=== PATIENT | female | born 1980 | race Two or more races ===

== ENCOUNTER 2021-01-15 05:28 | Inpatient (IN) | payer SELFPAY ==
[~2021-01-15] VITALS: Ht 160 cm; Wt 120.4 kg
[2021-01-15] VITALS (17 sets, daily range): BP systolic 114–152; BP diastolic 61–91
--- NOTE | 2021-01-15 06:36 | NUR ---
PATIENT ARRIVED ON THE FLOOR AT 0600, AMBULATORY. A/O X4.NO S/S OF DISTRESS NOTED. CALL LIGHT WITHIN REACH. BED IN LOWEST AND LOCKED POSITION. NPO. V/S TAKEN AND RECORDED.
--- NOTE | 2021-01-15 06:51 | NUR ---
PATIENT SIGNED THE CONSENTS AND ATTACHED TO THE CHART.
[2021-01-15] MEDS ORDERED: HYDROMORPHONE INJ 2 MG/ML DISP.SYRIN ONE (07:16)
[2021-01-15] MEDS ORDERED: ROCURONIUM BROMIDE 50 MG/5 ML ONE ×3 (07:16→11:42)
[2021-01-15] MEDS ORDERED: ANESTHESIA TRAY IN PYXIS 1 EA TRAY MC ONE (07:30)
--- NOTE | 2021-01-15 07:38 | NUR ---
MS RN OPENING NOTES RECEIVED PT RESTING IN BED IN NO ACUTE SIGN SOF DISTRESS. A/O X4, ABLE TO MAKE NEEDS KNOIWN. ON ROOM AIR, BREATHING EVEN AND UNLABORED. PT FOR SURGERY THIS MORNING BY AARON MCDONALD. STAT RAPID COVID 19 SWAB AND URINE FOR TEST COLLECTED, AWAITING FOR RESULTS. CALL LIGHT W/I EASY REACH OF PT.
[2021-01-15] MEDS ORDERED: MIDAZOLAM HCL 2 MG/2ML VIAL ONE (07:56)
--- NOTE | 2021-01-15 08:03 | NUR ---
RN NOTES PATIENT PICKED-UP VIA HER BED TO SURGERY.
[2021-01-15] MEDS ORDERED: HEPARIN SODIUM, PORCINE 5000 UNITS/1 ML VIAL ONE (09:47)
[2021-01-15] MEDS ORDERED: DESFLURANE 240 ML BOTTLE IH ONE (10:34)
[2021-01-15] MEDS ORDERED: METHYLENE BLUE 10 ML VIAL ONE (11:16)
[2021-01-15] MEDS ORDERED: MORPHINE SULFATE SOLN CONCENTRATED 20 MG/ML PO PRN (13:00)
[2021-01-15] MEDS ORDERED: ONDANSETRON HCL/PF 4 MG/2 ML VIAL ONE (13:21)
[2021-01-15] MEDS ORDERED: METOCLOPRAMIDE HCL 10 MG/2 ML VIAL ONE (13:45)
--- NOTE | 2021-01-15 14:37 | NUR ---
RN NOTES PT RETURNED TO UNIT S/P LAPAROSCOPIC SLEEVE GASTRECTOMY BY DR AARON SALAS. PT IS LETHARGIC, A/O X4. ABLE TO VERBALIZED NEEDS. DRESSING ON 5 SURGICAL DRESSING ON ABDOMEN C/D/I. ROGERIO DRAIN ON RIGHT UPPER QUADRANT IN PLACE WITH SEROSANGUINEOUS DRAINAGE NOTED. PT ON SUPPLEMENTAL 02 VIA N/C AT 2LPM, BREATHING EVEN AND UNLABORED, SP02 97%. V/S TAKEN AND RECORDED. PT WITH IV ACCESS PRESENT ON LFA G#20, WILL INFUSED IVF OF D5 NS + 20MEQ KCL AT 150ML/HR PER MD ORDER. SAFETY MEASURES KEPT IN PLACE; BED IN LOWEST LOCKED POSITION WITH SIDE RAILS UP X2. CALL LIGHT W/I EASY REACH OF PT. WILL MONITOR PT CLOSELY.
[2021-01-15] MEDS: FENTANYL PF 100MCG/2ML AMPUL IV PRN ×3 (16:22→21:19)
[2021-01-15] MEDS ORDERED: NEPRO VAN 237 ML CAN PO SCH (17:00)
[2021-01-15] MEDS: Potassium Chloride 20 MEQ in IV D5/ 0.9% NACL 1,000 ML IV SCH (17:55)
[2021-01-15] MEDS: NEPRO VAN 237 ML CAN PO SCH ×7 (18:19→23:19)
[2021-01-15] MEDS: METOCLOPRAMIDE HCL 10 MG/2 ML VIAL IV SCH ×2 (18:27→23:26)
--- NOTE | 2021-01-15 18:33 | NUR ---
RN NOTES PT VOMITED FLUIDS MIXED WITH BLOOD. REGLAN 10MG IVP ADMINISTERED ORDERED. WILL CONTINUE TO MONITOR.
--- NOTE | 2021-01-15 19:54 | NUR ---
MS RN CLOSING NOTES PT RESTING AT MODERATE HIGH BACKREST POSITION. A/O X4. ABLE TO VERBALIZED NEEDS. DRESSING ON SURGICAL INCISIONS ON ABDOMEN C/D/I. ROGERIO DRAIN ON RIGHT UPPER QUADRANT IN PLACE WITH SEROSANGUINEOUS DRAINAGE NOTED. PT ON SUPPLEMENTAL 02 VIA N/C AT 2LPM, BREATHING EVEN AND UNLABORED. IV ACCESS PRESENT ON LFA G#20 INTACT AND PATENT, IVF OF D5 NS + 20MEQ KCL AT 150ML/HR INFUSING WELL, NO S/S OF INFILTRATIONS NOTED. ALL NEEDS AND CARE ATTENDED WELL. SAFETY MEASURES KEPT IN PLACE; BED IN LOWEST LOCKED POSITION WITH SIDE RAILS UP X2. CALL LIGHT W/I EASY REACH OF PT. ENDORSED ARSENIO TO SHAPER MACHINE HAND NURSE.
[2021-01-15 20:07] LABS: BASOPHILS % (AUTO) 0.1 % (0.0-2.0); HEMATOCRIT 36 % (33-45); HEMOGLOBIN 11.8 g/dL (11.5-14.8); LYMPHOCYTES # (AUTO) 0.7 K/uL (0.8-4.8); LYMPHOCYTES % (AUTO) 5.5 % (20.0-44.0); MEAN CORPUSCULAR HGB CONC 33 g/dl (31.0-36.0); MEAN CORPUSCULAR VOLUME 84 fL (82-100); MONOCYTES # (AUTO) 0.5 K/uL (0.1-1.30); MONOCYTES % (AUTO) 3.6 % (2.0-12.0); NEUTROPHILS # (AUTO) 11.8 K/uL (1.8-8.9); NEUTROPHILS % (AUTO) 90.8 % (43.0-81.0); PLATELET COUNT (AUTO) 291 K/uL (150-450); RED BLOOD CELL COUNT(AUTO) 4.23 MIL/uL (4.0-5.2)
[2021-01-15 20:12] LABS: CREATININE 0.6 mg/dL (0.6-1.3); POTASSIUM 3.9 mmol/L (3.5-5.1)
[2021-01-15] MEDS: ONDANSETRON HCL/PF 4 MG/2 ML VIAL IV PRN (21:25)
--- NOTE | 2021-01-15 21:35 | NUR ---
MS/TELE/RN C/O NAUSEA, ZOFRAN IV WAS GIVEN ORDERED, WILL MONITOR.
[2021-01-15] MEDS ORDERED: HYDROMORPHONE 1 MG/1 ML DISP.SYRIN IV PRN (23:00)
[2021-01-15] MEDS: HEPARIN SODIUM, PORCINE 5000 UNITS/1 ML VIAL SQ SCH (23:21)
[2021-01-15] MEDS: HYDROMORPHONE 1 MG/1 ML DISP.SYRIN IV PRN (23:44)
[2021-01-16] VITALS: BP 150/81
[2021-01-16] MEDS: NEPRO VAN 237 ML CAN PO SCH ×12 (00:19→17:38)
--- NOTE | 2021-01-16 00:54 | NUR ---
MS/TELE/RN PATIENT IS SLEEPING AT THIS TIME APPEAR COMFORTABLE, NO SIGNS OF DISTRESS NOTED, CALL LIGHT IN REACH, WILL CONTINUE TO MONITOR.
[2021-01-16] MEDS: HYDROMORPHONE 1 MG/1 ML DISP.SYRIN IV PRN ×8 (02:21→22:22)
[2021-01-16 04:00] VITALS: BP 148/78
[2021-01-16] MEDS: METOCLOPRAMIDE HCL 10 MG/2 ML VIAL IV SCH ×4 (05:21→23:53)
[2021-01-16] MEDS: HEPARIN SODIUM, PORCINE 5000 UNITS/1 ML VIAL SQ SCH ×3 (05:21→22:23)
[2021-01-16] MEDS: Potassium Chloride 20 MEQ in IV D5/ 0.9% NACL 1,000 ML IV SCH ×3 (05:40→22:22)
--- NOTE | 2021-01-16 06:00 | NUR ---
MS/PAMELA/MOHAN ROGERIO OUTPUT IS SANGUINEOUS.
[2021-01-16 06:07] LABS: BASOPHILS % (AUTO) 0.3 % (0.0-2.0); EOSINOPHILS % (AUTO) 0.1 % (0.0-6.0); HEMATOCRIT 34 % (33-45); HEMOGLOBIN 11.1 g/dL (11.5-14.8); LYMPHOCYTES # (AUTO) 1.3 K/uL (0.8-4.8); LYMPHOCYTES % (AUTO) 10.3 % (20.0-44.0); MEAN CORPUSCULAR HGB CONC 33 g/dl (31.0-36.0); MEAN CORPUSCULAR VOLUME 84 fL (82-100); NEUTROPHILS # (AUTO) 10.5 K/uL (1.8-8.9); NEUTROPHILS % (AUTO) 81.3 % (43.0-81.0); PLATELET COUNT (AUTO) 306 K/uL (150-450); RED BLOOD CELL COUNT(AUTO) 4.03 MIL/uL (4.0-5.2); WHITE BLOOD COUNT (AUTO) 12.9 K/uL (4.3-11.0)
--- NOTE | 2021-01-16 06:15 | NUR ---
MS/TELE/RN PATIENT IS SLEEPING AT THIS TIME, APPEAR COMFORTABLE, NO SIGNS OF DISTRESS NOTED, CALL LIGHT IN REACH, ALL NEEDS ATTENDED AT THIS TIME, WILL CONTINUE TO MONITOR.
[2021-01-16 06:31] LABS: ALBUMIN 3.3 g/dL (3.4-5.0); BILIRUBIN,TOTAL 0.4 mg/dL (0.2-1.0); CALCIUM, SERUM 8.1 mg/dL (8.5-10.1); CREATININE 0.6 mg/dL (0.6-1.3); TOTAL PROTEIN, SERUM 6.8 g/dL (6.4-8.2)
--- NOTE | 2021-01-16 07:53 | NUR ---
TELE/RN NOTES RECEIVED PATIENT IN BED, ASLEEP, EASILY AROUSABLE WITH VERBAL CUES. ALERT AND ORIENTEDX4, ABLE TO MAKE NEEDS KNOWN. ON 2 LPM OF OXYGEN VIA NASAL CANNULA. NO SOB NOTED, NO DISTRESS REPORTED. ROGERIO DRAIN ON RUQ NOTED. IV SITE ON RIGHT HAND #24G IS INTACT WITH A RUNNING IV D5NS + 20KCL. SAFETY PRECAUTIONS MAINTAINED. BED LOCKED ON LOWEST POSITION, SIDE RAILS UPX2, CALL LIGHT WITHIN REACH. WILL CONTINUE TO MONITOR PATIENT.
[2021-01-16 08:00] VITALS: BP 150/80
[2021-01-16] MEDS: ONDANSETRON HCL/PF 4 MG/2 ML VIAL IV PRN ×2 (08:29→17:36)
[2021-01-16] MEDS: PANTOPRAZOLE 40 MG/PACK PACK PO SCH (08:46)
--- NOTE | 2021-01-16 08:46 | NUR ---
TELE/RN NOTES- NPO PATIENT ON NPO SINCE MIDNIGHT DUE TO THE UPCOMING PROCEDURE XRAY UPPER GI GASTROGRAFFIN.
[2021-01-16] MEDS ORDERED: DIATR MEGLU/DIATRIZOATE SODIUM 120 ML BOTTLE (GASTROGRAPHIN) ONE (09:39)
--- NOTE | 2021-01-16 13:00 | NUR ---
TELE/RN NOTES- ROGERIO DRAIN ESTELA, BRANDING SPECIALIST FOR DR. SALAS REMOVED PATIENT'S ROGERIO DRAIN ON THE ABDOMEN. NO BLEEDING NOTED. PAIN REPORTED BY PATIENT AND ADMINISTERED PAIN MEDS PRN. WILL CONTINUE TO MONITOR PATIENT.
[2021-01-16] MEDS ORDERED: IPRATROPIUM NEB FS 0.5 MG/2.5 ML AMPUL.NEB NEB PRN (13:30)
[2021-01-16] MEDS ORDERED: ALBUTEROL FS 2.5 MG/0.5 ML VIAL.NEB NEB PRN (13:30)
[2021-01-16 16:00] VITALS: BP 155/82
--- NOTE | 2021-01-16 19:14 | NUR ---
TELE/RN CLOSING NOTES PATIENT IN BED, ASLEEP, EASILY AROUSABLE WITH VERBAL CUES. ALERT AND ORIENTEDX4, ABLE TO MAKE NEEDS KNOWN. ON 2 LPM OF OXYGEN VIA NASAL CANNULA. NO SOB NOTED, NO DISTRESS REPORTED. IV SITE ON RIGHT HAND #24G IS INTACT WITH A RUNNING IV D5NS + 20KCL @75ML/HR. SAFETY PRECAUTIONS MAINTAINED. BED LOCKED ON LOWEST POSITION, SIDE RAILS UPX2, CALL LIGHT WITHIN REACH. WILL ENDORSE TO THE NEXT SHIFT FOR ARSENIO.
[2021-01-16 20:00] VITALS: BP 135/84
--- NOTE | 2021-01-16 20:28 | NUR ---
MS/GIN CLERK ON INITIAL SHIFT ASSESSMENT, PATIENT WAS AWAKE, ALERT, ORIENTED, COMFORTABLE, NO DISTRESS NOTED, CALL LIGHT IN REACH. WILL MONITOR. Addendum: 01/16/21 at 2329 by HOLLIS BARNARD RN ENCOURAGED TO USE THE INCENTIVE SPIROMETRY, TEACHINGS DONE RE: IMPORTANCE OF INCENTIVE SPIROMETRY POST OPERATIVELY. ENCOURAGED TO DO COUGH AND DEEP BREATHING. PATIENT VERBALIZED UNDERSTANDING.
[2021-01-17] VITALS: BP 133/80
[2021-01-17] MEDS: HYDROMORPHONE 1 MG/1 ML DISP.SYRIN IV PRN ×5 (02:32→20:05)
[2021-01-17 04:00] VITALS: BP 143/84
[2021-01-17] MEDS: METOCLOPRAMIDE HCL 10 MG/2 ML VIAL IV SCH ×3 (05:26→18:07)
[2021-01-17] MEDS: HEPARIN SODIUM, PORCINE 5000 UNITS/1 ML VIAL SQ SCH ×3 (05:28→22:06)
[2021-01-17 06:22] LABS: BASOPHILS % (AUTO) 0.3 % (0.0-2.0); EOSINOPHILS % (AUTO) 0.3 % (0.0-6.0); HEMATOCRIT 32 % (33-45); HEMOGLOBIN 10.5 g/dL (11.5-14.8); LYMPHOCYTES # (AUTO) 1.7 K/uL (0.8-4.8); LYMPHOCYTES % (AUTO) 18.8 % (20.0-44.0); MEAN CORPUSCULAR HGB CONC 33 g/dl (31.0-36.0); MEAN CORPUSCULAR VOLUME 84 fL (82-100); MONOCYTES # (AUTO) 0.6 K/uL (0.1-1.30); MONOCYTES % (AUTO) 7.2 % (2.0-12.0); NEUTROPHILS # (AUTO) 6.5 K/uL (1.8-8.9); NEUTROPHILS % (AUTO) 73.4 % (43.0-81.0); PLATELET COUNT (AUTO) 275 K/uL (150-450); WHITE BLOOD COUNT (AUTO) 8.9 K/uL (4.3-11.0)
[2021-01-17 06:29] LABS: BILIRUBIN,TOTAL 0.4 mg/dL (0.2-1.0); CALCIUM, SERUM 8.3 mg/dL (8.5-10.1); CREATININE 0.6 mg/dL (0.6-1.3); MAGNESIUM 2.3 mg/dL (1.8-2.4); PHOSPHORUS 2.3 mg/dL (2.5-4.9); POTASSIUM 3.7 mmol/L (3.5-5.1); TOTAL PROTEIN, SERUM 6.5 g/dL (6.4-8.2)
--- NOTE | 2021-01-17 07:30 | NUR ---
TELE/RN OPENING NOTES RECEIVED PATIENT LYING ON BED, EASILY AROUSABLE WITH VERBAL CUES. ALERT AND ORIENTEDX4, ABLE TO MAKE NEEDS KNOWN. ON 2 LPM OF OXYGEN VIA NASAL CANNULA. NO SOB NOTED, NO DISTRESS REPORTED. IV SITE ON RIGHT HAND #24G IS INTACT WITH A RUNNING IV D5NS + 20KCL @75ML/HR. WITH COMPLAINT OF PAIN AT THE SCALE OF 9/10. PAIN MEDICATION GIVEN. SAFETY PRECAUTIONS MAINTAINED. BED ON LOWEST AND LOCKED POSITION, SIDE RAILS UPX2, CALL LIGHT WITHIN REACH. WILL CONTINUE TO MONITOR.
[2021-01-17] MEDS ORDERED: NEPRO VAN 237 ML CAN PO SCH (09:00)
[2021-01-17] MEDS: PANTOPRAZOLE 40 MG/PACK PACK PO SCH (09:42)
[2021-01-17] MEDS: ONDANSETRON HCL/PF 4 MG/2 ML VIAL IV PRN (09:52)
[2021-01-17] MEDS: NEPRO VAN 237 ML CAN PO SCH ×3 (09:57→17:00)
[2021-01-17] MEDS ORDERED: NEUTRA PHOS 1 POWD.PACKET PO ONE ×2 (11:30)
[2021-01-17] MEDS ORDERED: PANT40TA2 PO (13:23)
[2021-01-17] MEDS ORDERED: METO-295 PO (13:23)
[2021-01-17] MEDS ORDERED: HYDR-3976 PO (13:23)
[2021-01-17] MEDS: HYDROCODONE/APAP 5/325MG TABLET PO PRN ×2 (14:56→19:36)
[2021-01-17] MEDS: Potassium Chloride 20 MEQ in IV D5/ 0.9% NACL 1,000 ML IV SCH (16:24)
--- NOTE | 2021-01-17 18:57 | NUR ---
ARMAMENT REPAIRER CLOSING NOTES PATIENT ON BED, AWAKE, A/O X 4. ABLE TO MAKE NEEDS KNOWN. WITH NO COMPLAINTS OF SOB, NOT IN DISTRESS. WITH COMPLAINTS OF PAIN. PAIN MEDS GIVEN. WITH IV ACCESS AT RIGHT FA G22 WITH D5NS + 20MEQ KCL AT 75MLS/HR. FOR DISCHARGE TOMORROW. SAFETY MEASURES IN PLACED. CALL LIGHT WITHIN REACH. BED ON LOWEST, LOCKED POSITION, SIDE RAILS UP X 2. NEEDS ATTENDED. WILL ENDORSE FOR ARSENIO TO DIVISION CHAIR.
--- NOTE | 2021-01-17 19:36 | NUR ---
MS RN NOTES PATIENT GIVEN NORCO 5-325 AT THIS TIME ORDERED BY DOCTOR SALAS.
--- NOTE | 2021-01-17 19:40 | NUR ---
MS RN OPENING PATIENT IN BED, CRYING OF PAIN IN DISTRESS AND UPSET. DOCTOR JOSUE CALLED TO CHANGE FREQUENCY OF PATIENT'S NORCO FROM Q6 TO Q4 -- WILL FOLLOW THROUGH ORDER. SAFETY IN PLACE WILL CONTINUE TO MONITOR AND TEND TO PATIENTS NEEDS.
[2021-01-17] MEDS ORDERED: HYDROCODONE/APAP 5/325MG TABLET PO PRN ×3 (20:00→21:00)
--- NOTE | 2021-01-17 20:05 | NUR ---
MS RN NOTES PATIENT COMPLAINING OF SEVERE PAIN. PER PATIENT THE TABLET DOES NOT CUT IT AND SHE'S BEEN IN PAIN FOR 2 HOURS AND SAYING THAT DOCTOR JOSUE TOLD HER THAT SHE CANNOT TAKE ANYMORE OF THE SHOTS BECAUSE SHE IS FLYING EARLY TOMORROW -- MISCOMMUNICATION. I CONSULTED THIS TO CHARGE NURSE, CINDY AND CINDY SAID IT IS OKAY TO GIVE THE DILAUDID SINCE IT IS STILL EARLY BUT PATIENT CANNOT GET ANYMORE DILAUDID IN THE MORNING. PATIENT GIVEN DILAUDID 1MG AT THIS TIME. WILL CONTINUE TO MONITOR.
--- NOTE | 2021-01-17 20:30 | NUR ---
MS RN NOTES DOCTOR SALAS CALLED AND ASKED ME TO CALL PATIENT'S BOYFRIEND AND ASK WHICH PHARMACY HE FOUND THAT IS OPEN 24 HOURS AND ASKED ME TO MASSAGE HIM AFTER. I TRIED CALLING THE NUMBER DOCTOR GAVE AND NO ANSWER. I VERIFIED THE NUMBER WITH THE PATIENT AND TURNS OUT THE NUMBER WAS INCORRECT. PATIENT CALLED HER WELL AND THEY TALKED AND PATIENT DID TELL ME THAT SHE IS UPSET WITH THE MISCOMMUNICATION. PER PATIENT AND HER , THE ALREADY TALKED TO DOCTOR SALAS AN HOUR AGO AND ALREADY TOLD DOCTOR SALAS REGARDING THE PHARMACY MATTER AND CLAIMING THAT DOCTOR SALAS ALREADY KNOW WHICH PHARMACY IT IS. --LATER IN THE PHONE CALL, PHONE CALLED DOCTOR SALAS WELL AND THE THREE OF THEM TALKED. LATER I SPOKE ON THE PHONE WITH THE AND STATED CONCERN THAT THE PATIENT MIGHT BE IN PAIN WHEN SHE GET'S OUT OF THE HOSPITAL. I DID TELL THE THAT THE BEST I COULD DO FOR PATIENT IS GIVE HER THE NORCO PILL BEFORE SHE LEAVES THE HOSPITAL. AND ALSO TOLD THAT, THAT IS WHY DOCTOR SALAS IS MAKING SURE THAT THEY FIND A 24 HOUR PHARMACY TO GET REFILL BEFORE THEIR FLIGHT. DID STATE THAT IT IS HARD FOR HIM TO GO TO PHARMACY BECAUSE THEY HAVE AN 8 YEAR OLD DAUGHTER AND THEY JUST USE [employer] TO GO PLACES HENCE IT IS DIFFICULT FOR THEM. I DID TELL HIM THAT GIVING THE NORCO PILL BEFORE THE PATIENT GETS DISCHARGED IS THE BEST I COULD DO FOR PATIENT. HE ACKNOWLEDGED THIS. PATIENT IS ALSO AWARE AND AGREED TO THE PLAN.
--- NOTE | 2021-01-17 23:08 | NUR ---
MS RN NOTES MADE DOCTOR SALAS AWARE OF THE PLAN. NO NEW ORDERS FOR NOW.
[2021-01-18] MEDS: METOCLOPRAMIDE HCL 10 MG/2 ML VIAL IV SCH ×2 (00:34→05:14)
--- NOTE | 2021-01-18 01:18 | NUR ---
MS RN NOTE DOCTOR JOSUE ORDERED 2 TABS OF NORCO 5/325 FOR 6-10 PAIN VIA PHONE. ORDER CARRIED OUT.
[2021-01-18] MEDS ORDERED: HYDROCODONE/APAP 5/325MG TABLET PO PRN (01:30)
[2021-01-18] MEDS: HEPARIN SODIUM, PORCINE 5000 UNITS/1 ML VIAL SQ SCH (04:58)
--- NOTE | 2021-01-18 05:15 | NUR ---
MS RN NOTES PATIENT GIVEN THE 2 TABS OF NORCO 5/325 AT THIS TIME. ALONG WITH REGLAN. PER PATIENT SHE MIGHT GET SICK - NAUSEOUS WITH THE MEDICATION HENCE GIVEN THE 0600 DOSE OF REGLAN AT THIS TIME WELL.
--- NOTE | 2021-01-18 06:05 | NUR ---
MS RN NOTES PATIENT CAME DOWN AT THIS TIME VIA WHEELCHAIR WITH ROSIE GUZMAN. A/OX4. NO S/S OF APPARENT DISTRESS. NO PAIN -- MANAGED WITH MEDICATIONS. BELONGINGS SIGNED FOR. ARM BAND TAKEN OFF OF PATIENT. IV LINE TAKEN OFF. EXIT CARE PRINTED OUT AND SIGNED, GIVEN TO PATIENT WITH PRESCRIPTION FOR NORCO.
--- NOTE | 2021-01-18 06:18 | NUR ---
MS RN NOTES CAME DOWN TO CHECK ON PATIENT PATIENT NOW WITH FAMILY AT THIS TIME WITH TRANSPORTATION.
--- NOTE | 2021-01-18 06:30 | NUR ---
MS RN NOTES PATIENT LEFT WITH FAMILY AT THIS TIME WITH TRANSPORTATION.
== END 2021-01-18 06:00 | disposition home or self-care (01) | DRG 621 ==
LOC: DS 05:28 → MED 06:06 → TELE 22:54 → MED 01-17 09:14
PROC: 0DB64ZZ Excision of Stomach, Percutaneous Endoscopic Approach (ICD-10-PCS; principal; 2021-01-15)
PROC: 0BQT4ZZ Repair Diaphragm, Percutaneous Endoscopic Approach (ICD-10-PCS; 2021-01-15)
DX: E66.01 Morbid (severe) obesity due to excess calories (principal); Z20.822 Contact with and (suspected) exposure to COVID-19; Z68.42 Body mass index [BMI] 45.0-49.9, adult; G89.29 Other chronic pain; R10.9 Unspecified abdominal pain; R06.2 Wheezing; K44.9 Diaphragmatic hernia without obstruction or gangrene
CPT/HCPCS: 36415; 71045-TC; 74246-TC; 80048-TC; 80053-TC; 83735-TC; 84100-TC; 84703-TC; 85025-TC; 87081-TC; 88305-TC; 88312-TC; 88313-TC; G0378; J0330; J0690; J1100; J1170; J1644; J1885; J2250; J2405; J2704; J2765; J3010; J3480; J3490; J7042; Q9963; Q9968